=== PATIENT | female | born 1965 | race Caucasian/White ===

== ENCOUNTER 2016-02-27 15:30 | Outpatient (RCR) ==
--- NOTE | 2016-02-11 09:22 | RS.OPPTDN ---
Subjective Date of Note: 02/11/16 Visit #: 2 Date of Evaluation: 02/07/16 Treatment Diagnosis: R TKR S/P Current Subjective/complaints:: Reports no knee pain this morning,ambulates with decreased R knee flexion when entering clinic. Pain Assessment - Pain Description Pain Location: Right knee Pain Description: Dull, Aching Pain Description: Late at night is her worst pain. Current Pain Intensity: 0 at rest - Treatment Modality: Electrical Stim Unattended Parameters/Method Applied: 20 mins. high volt to R knee channel 1 @ 160 pv, channel 2 @ 80 pv. Patient Position: Supine - Heat/Cryotherapy Treatment: Cryotherapy (concurrent with e-stim) Interventions - Exercise/Activities/Manual Therapy Exercises/Activities: Right TKA exercises: 3/15 each of ankle pumps,SAQ's,SLR,s, heelslides,quad sets.3# resistance for SAQ and SLr.AROm is 110 flexion , extension 0. Total minutes of Exercise: 20 Manual Therapy: NA Total minutes of Manual Therapy: 0 HOME EXERCISE PROGRAM: Patient is performing TKR HEP currently at home. - Charges Total Direct Minutes: 20 Total Treatment Time: 40 Procedures billed for this date of service:: cp,e-stim,ex 1 Assessment: Patient progressing well ,has full extension ,flexion has soft end feel,minimal warmth ,moderate edema present.She has decreased knee flexion as she walks,but she has progressive arthritis in the L knee.She is very motivated to improve. Patient Education: Education of diagnosis, Body/Joint mechanics, Home Exercise Program, Home Safety, Activity Modification, Education of Plan of Care Patient demonstrates compliance with HEP?: Yes Short Term Goals Goal #1: Patient right knee AROM 0 to 110 degrees Goal to be met by: 02/29/16 (110 today ) Progress towards Goal:: Met Goal #2: Right knee strength 4+/5 Goal to be met by: 02/29/16 Progress towards Goal:: Progressing Goal #3: Eliminate right knee pain when not in therapy. Goal to be met by: 02/29/16 Hip Hop Performers Goals Goal #1: Right knee WFLs for AROM. Goal to be met by: 03/21/16 Progress towards goal: Progressing Goal #2: Right knee strength 5/5 for joint stability. Goal to be met by: 03/21/16 Goal #3: Independent in HEP for DC. Goal to be met by: 03/21/16 Goal #4: Only occasional RLE edema. Goal to be met by: 03/21/16 Plan PLAN OF CARE EXPIRES ON:: 03/21/16 ORDER # VISITS AND/OR THROUGH DATE: 03/21/2016 PLAN: Continue Plan of Care
--- NOTE | 2016-02-13 09:40 | RS.OPPTDN ---
Subjective Date of Note: 02/13/16 Visit #: 3 Date of Evaluation: 02/07/16 Treatment Diagnosis: R TKR S/P Current Subjective/complaints:: Patient reports doing her HEP,doing well.Reports slight increase in knee pain at the end of the day. Pain Assessment - Pain Description Pain Location: Right knee Pain Description: Dull, Aching Pain Description: Late at night is her worst pain. Current Pain Intensity: 0 at rest Worst Pain Intensity: 1/10 last night - Treatment Modality: Electrical Stim Unattended Parameters/Method Applied: 20 mins. high volt,channel 1 @ 105 pv,channel 2 @ 130 pv to R knee. Patient Position: Supine - Heat/Cryotherapy Treatment: Cryotherapy (concurrent with e-stim) Interventions - Exercise/Activities/Manual Therapy Exercises/Activities: 30 mins. total of TKA protocol with 4# resistance for SAQ.LAQ's,heelslides.Red theraband resistance for hams. curls in supine.AROM: 110 flexion ,exyension is 0. Total minutes of Exercise: 30 Manual Therapy: NA Total minutes of Manual Therapy: 0 HOME EXERCISE PROGRAM: Patient is performing TKR HEP currently at home. - Charges Total Direct Minutes: 30 Total Treatment Time: 50 Procedures billed for this date of service:: cp,e-stim,ex 2 Assessment: Progressing well in all areas,improved control for eccentric motions today.No report of pain during exercises.She is very motivatedto improve ,compliant to recommendations of the therpy staff. Patient Education: Body/Joint mechanics, Home Exercise Program, Education of Plan of Care Patient demonstrates compliance with HEP?: Yes Short Term Goals Goal #1: Patient right knee AROM 0 to 110 degrees Goal to be met by: 02/29/16 (110 today ) Progress towards Goal:: Met Goal #2: Right knee strength 4+/5 Goal to be met by: 02/29/16 Progress towards Goal:: Progressing Goal #3: Eliminate right knee pain when not in therapy. Goal to be met by: 02/29/16 Progress towards Goal:: Progressing Penitentiary Goals Goal #1: Right knee WFLs for AROM. Goal to be met by: 03/21/16 Progress towards goal: Progressing Goal #2: Right knee strength 5/5 for joint stability. Goal to be met by: 03/21/16 Goal #3: Independent in HEP for DC. Goal to be met by: 03/21/16 Progress towards goal: Progressing Goal #4: Only occasional RLE edema. Goal to be met by: 03/21/16 Plan PLAN OF CARE EXPIRES ON:: 03/21/16 ORDER # VISITS AND/OR THROUGH DATE: 03/21/2016 PLAN: Continue Plan of Care
--- NOTE | 2016-02-15 09:28 | RS.OPPTDN ---
Subjective Date of Note: 02/15/16 Visit #: 4 Date of Evaluation: 02/07/16 Treatment Diagnosis: R TKR S/P Current Subjective/complaints:: Reports increased tightness today,but no increased pain. Pain Assessment - Pain Description Pain Location: Right knee Pain Description: Dull, Aching Pain Description: Late at night is her worst pain. Current Pain Intensity: 0 at rest - Treatment Modality: Electrical Stim Unattended Parameters/Method Applied: 20 mins. high volt,to R knee cross-current ,channel 1 @115pv,channel 2 @ 65pv. Patient Position: Supine - Heat/Cryotherapy Treatment: Cryotherapy (concurrent with e-stim) Interventions - Exercise/Activities/Manual Therapy Exercises/Activities: 30 mins. total of TKA protocol with 3# resistance for ankle pumps,quad sets, SAQ,LAQ's,SLR's,heelslides.AROM 114 flexion,0 extension. Total minutes of Exercise: 30 Manual Therapy: NA Total minutes of Manual Therapy: 0 HOME EXERCISE PROGRAM: Patient is performing TKR HEP currently at home. - Charges Total Direct Minutes: 30 Total Treatment Time: 50 Procedures billed for this date of service:: cp,e-stim,ex 2 Assessment: Patient has less edema today after modalities and exercises , minimal warmth,well-healed incision.She has soft end feel for knee flexion and her current ROM is active ,no stretch required. Patient Education: Body/Joint mechanics, Home Exercise Program, Home Safety, Activity Modification, Education of Plan of Care Patient demonstrates compliance with HEP?: Yes Short Term Goals Goal #1: Patient right knee AROM 0 to 110 degrees Goal to be met by: 02/29/16 (114 today ) Progress towards Goal:: Met Goal #2: Right knee strength 4+/5 Goal to be met by: 02/29/16 Progress towards Goal:: Partially Met Goal #3: Eliminate right knee pain when not in therapy. Goal to be met by: 02/29/16 Progress towards Goal:: Progressing Correction Goals Goal #1: Right knee WFLs for AROM. Goal to be met by: 03/21/16 Progress towards goal: Progressing Goal #2: Right knee strength 5/5 for joint stability. Goal to be met by: 03/21/16 Goal #3: Independent in HEP for DC. Goal to be met by: 03/21/16 Progress towards goal: Progressing Goal #4: Only occasional RLE edema. Goal to be met by: 03/21/16 Progress towards goal: Progressing Plan PLAN OF CARE EXPIRES ON:: 03/21/16 ORDER # VISITS AND/OR THROUGH DATE: 03/21/2016 PLAN: Continue Plan of Care
--- NOTE | 2016-02-18 09:14 | RS.OPPTDN ---
Subjective Date of Note: 02/18/16 Visit #: 5 Date of Evaluation: 02/07/16 Treatment Diagnosis: R TKR S/P Current Subjective/complaints:: Pleased with her progress,reports her getting up and down is better,able to tolerate being on her fet longer with minimal pain. Pain Assessment - Pain Description Pain Location: Right knee Pain Description: Tightness Pain Description: tightness Current Pain Intensity: 0 at rest - Treatment Modality: Electrical Stim Unattended Parameters/Method Applied: 20 mins. high volt to R knee ,channel 1 @ 100 pv, channel 2 @ 80 pv. Patient Position: Supine - Heat/Cryotherapy Treatment: Cryotherapy (concurrent with e-stim) Interventions - Exercise/Activities/Manual Therapy Exercises/Activities: 30 mins. total of TKA protocol with 4# resistance for ankle pumps,quad sets, SAQ,LAQ's,SLR's,heelslides.AROM 115 flexion,0 extension.Passive flexion with stretch @ 122 today. Total minutes of Exercise: 30 Manual Therapy: NA Total minutes of Manual Therapy: 0 HOME EXERCISE PROGRAM: Patient is performing TKR HEP currently at home. - Charges Total Direct Minutes: 30 Total Treatment Time: 50 Procedures billed for this date of service:: cp,e-stim,ex 2 Assessment: Progressing well in all areas,continues to have soft end feel for flexion,less edema and warmth in the R knee today.She is compliant to HEP. Patient Education: Body/Joint mechanics, Home Exercise Program, Education of Plan of Care Patient demonstrates compliance with HEP?: Yes Short Term Goals Goal #1: Patient right knee AROM 0 to 110 degrees Goal to be met by: 02/29/16 (122) Progress towards Goal:: Met Goal #2: Right knee strength 4+/5 Goal to be met by: 02/29/16 Progress towards Goal:: Partially Met Goal #3: Eliminate right knee pain when not in therapy. Goal to be met by: 02/29/16 Progress towards Goal:: Partially Met Half-Way Goals Goal #1: Right knee WFLs for AROM. Goal to be met by: 03/21/16 Progress towards goal: Progressing Goal #2: Right knee strength 5/5 for joint stability. Goal to be met by: 03/21/16 Progress towards goal: Progressing Goal #3: Independent in HEP for DC. Goal to be met by: 03/21/16 Progress towards goal: Progressing Goal #4: Only occasional RLE edema. Goal to be met by: 03/21/16 Progress towards goal: Progressing Plan PLAN OF CARE EXPIRES ON:: 03/21/16 ORDER # VISITS AND/OR THROUGH DATE: 03/21/2016 PLAN: Progress Exercises
--- NOTE | 2016-02-20 09:13 | RS.OPPTDN ---
Subjective Date of Note: 02/20/16 Visit #: 6 Date of Evaluation: 02/07/16 Treatment Diagnosis: R TKR S/P Current Subjective/complaints:: Reports yesterday she had multiple joint pain, but better today. Pain Assessment - Pain Description Pain Location: Right knee Pain Description: Tightness, Dull, Aching Pain Description: tightness Current Pain Intensity: 0 at rest - Heat/Cryotherapy Treatment: Cryotherapy (20 mins. prior to exercises) Interventions - Exercise/Activities/Manual Therapy Exercises/Activities: 30 mins. total of TKA protocol with 4# resistance for ankle pumps,quad sets, SAQ,LAQ's,SLR's,heelslides.AROM 121 flexion,0 extension. Total minutes of Exercise: 30 Manual Therapy: NA Total minutes of Manual Therapy: 0 HOME EXERCISE PROGRAM: Patient is performing TKR HEP currently at home. - Charges Total Direct Minutes: 30 Total Treatment Time: 50 Procedures billed for this date of service:: cp,ex 2 Assessment: Patient progressing well.Her gaitpattern has decdreased knee flexion ,but this is due to L knee instability(has scheduled surgery for May on the L knee).She has soft end feel for flexion.She has increased quad strenght,better eccentric control,especially with doing SLR's. Patient Education: Home Exercise Program, Education of Plan of Care Patient demonstrates compliance with HEP?: Yes Short Term Goals Goal #1: Patient right knee AROM 0 to 110 degrees Goal to be met by: 02/29/16 (121 -122) Progress towards Goal:: Met Goal #2: Right knee strength 4+/5 Goal to be met by: 02/29/16 Progress towards Goal:: Partially Met Goal #3: Eliminate right knee pain when not in therapy. Goal to be met by: 02/29/16 Progress towards Goal:: Partially Met Imaging Assistant Goals Goal #1: Right knee WFLs for AROM. Goal to be met by: 03/21/16 Progress towards goal: Met Goal #2: Right knee strength 5/5 for joint stability. Goal to be met by: 03/21/16 Progress towards goal: Progressing Goal #3: Independent in HEP for DC. Goal to be met by: 03/21/16 Progress towards goal: Partially Met Goal #4: Only occasional RLE edema. Goal to be met by: 03/21/16 Progress towards goal: Partially Met Plan PLAN OF CARE EXPIRES ON:: 03/21/16 ORDER # VISITS AND/OR THROUGH DATE: 03/21/2016 PLAN: Progress Exercises
--- NOTE | 2016-02-22 09:13 | RS.OPPTDN ---
Subjective Date of Note: 02/22/16 Visit #: 7 Date of Evaluation: 02/07/16 Treatment Diagnosis: R TKR S/P Current Subjective/complaints:: Reports doing well,is taking her pain meds. less frequently. Pain Assessment - Pain Description Pain Location: Right knee Pain Description: Dull, Aching Current Pain Intensity: 0 at rest - Heat/Cryotherapy Treatment: Cryotherapy (20 mins. prior to exercises) Interventions - Exercise/Activities/Manual Therapy Exercises/Activities: 30 mins. total of TKA protocol 04/23 each with 4# resistance for ankle pumps,quad sets, SAQ,LAQ's;SLR's for 5sets/5 reps., heelslides.AROM 122 flexion,0 extension. Total minutes of Exercise: 30 Manual Therapy: NA Total minutes of Manual Therapy: 0 HOME EXERCISE PROGRAM: Patient is performing TKR HEP currently at home. - Charges Total Direct Minutes: 30 Total Treatment Time: 50 Procedures billed for this date of service:: cp,ex 2 Assessment: Progressing well in all areas,has less warmth and edema in R knee today.He AROM has soft end feel for flexion,her extension is WNL.She is highly motivated to impprove,compliant to HEP. Patient Education: Education of Plan of Care Patient demonstrates compliance with HEP?: Yes Short Term Goals Goal #1: Patient right knee AROM 0 to 110 degrees Goal to be met by: 02/29/16 Progress towards Goal:: Met Goal #2: Right knee strength 4+/5 Goal to be met by: 02/29/16 Progress towards Goal:: Partially Met Goal #3: Eliminate right knee pain when not in therapy. Goal to be met by: 02/29/16 Progress towards Goal:: Partially Met Correctional Lieutenant Goals Goal #1: Right knee WFLs for AROM. Goal to be met by: 03/21/16 Progress towards goal: Met Goal #2: Right knee strength 5/5 for joint stability. Goal to be met by: 03/21/16 Progress towards goal: Progressing Goal #3: Independent in HEP for DC. Goal to be met by: 03/21/16 Progress towards goal: Partially Met Goal #4: Only occasional RLE edema. Goal to be met by: 03/21/16 Progress towards goal: Partially Met Plan PLAN OF CARE EXPIRES ON:: 02/10/17 ORDER # VISITS AND/OR THROUGH DATE: 03/21/2016 PLAN: Continue Plan of Care
--- NOTE | 2016-02-25 09:11 | RS.OPPTDN ---
Subjective Date of Note: 02/25/16 Visit #: 8 Date of Evaluation: 02/07/16 Treatment Diagnosis: R TKR S/P Current Subjective/complaints:: Reports doing well.her L knee is bothering than the R (surgery) knee. Pain Assessment - Pain Description Pain Location: Right knee Pain Description: Dull Pain Description: tightness Current Pain Intensity: 0 at rest - Heat/Cryotherapy Treatment: Cryotherapy (20 mins. prior to exercises) Interventions - Exercise/Activities/Manual Therapy Exercises/Activities: 30 mins. total of TKA protocol 04/23 each with 5# resistance for ankle pumps,quad sets, SAQ,LAQ's,SLR'swithout weights, heelslides.AROM 122 flexion,0 extension.Passive felxio nto 125. Total minutes of Exercise: 30 Manual Therapy: NA Total minutes of Manual Therapy: 0 HOME EXERCISE PROGRAM: Patient is performing TKR HEP currently at home. - Charges Total Direct Minutes: 30 Total Treatment Time: 50 Procedures billed for this date of service:: cp,ex 2 Assessment: Progressing well increased passive flexion ,extension WNL.Quad strenght increased,with nopain during exercises. Patient Education: Body/Joint mechanics, Education of Plan of Care Patient demonstrates compliance with HEP?: Yes Short Term Goals Goal #1: Patient right knee AROM 0 to 110 degrees Goal to be met by: 02/29/16 Progress towards Goal:: Met Goal #2: Right knee strength 4+/5 Goal to be met by: 02/29/16 Progress towards Goal:: Partially Met Goal #3: Eliminate right knee pain when not in therapy. Goal to be met by: 02/29/16 Progress towards Goal:: Partially Met [facility] Goals Goal #1: Right knee WFLs for AROM. Goal to be met by: 03/21/16 Progress towards goal: Met Goal #2: Right knee strength 5/5 for joint stability. Goal to be met by: 03/21/16 Progress towards goal: Progressing Goal #3: Independent in HEP for DC. Goal to be met by: 03/21/16 Progress towards goal: Met Goal #4: Only occasional RLE edema. Goal to be met by: 03/21/16 Progress towards goal: Met Plan PLAN OF CARE EXPIRES ON:: 03/21/16 ORDER # VISITS AND/OR THROUGH DATE: 03/21/2016 PLAN: Continue Plan of Care
--- NOTE | 2016-02-27 16:36 | RS.OPPTDC ---
Date of Discharge: 02/27/16 Date of Evaluation: 02/07/16 Number of Visits: 9 Treatment Diagnosis: R TKR S/P Current Level of Function: Returned to work,tolerating well.Pleased with her progress. Current Complaints/Gains: Patient pleased with he rprogress,reports fatigue from returning to work yesterday,but better today.She agrees with D/C plan due to good progress. Pain Assessment - Pain Description Pain Location: Right knee Pain Description: Tightness Pain Description: tightness at end of day Current Pain Intensity: 0 at rest Functional Outcome Measure LE Functional Scale: 51 - G Codes & Severity Modifier G Codes & Modifier: NA Source of G Code score: NA Gait - Gait Pattern General Gait Pattern Observation: Wide Based Gait Interventions - Exercise/Activities/Manual Therapy Exercises/Activities: 30 mins. total of TKA protocol 04/28 each for ankle pumps, quad sets, SAQ,LAQ's,SLR's,heelslides.AROM 122 flexion,0 extension.Passive flexion to 125.HEP review. Total minutes of Exercise: 30 Manual Therapy: NA Total minutes of Manual Therapy: 0 HOME EXERCISE PROGRAM: Patient is performing TKR HEP currently at home. - Charges Total Direct Minutes: 30 Total Treatment Time: 30 Procedures billed for this date of service:: ex 2 Assessment Assessment: All rehab goals met,agrees with D/C plan today.She has excellent understanding of HEP ,pain management,and joint protection. Patient Education: Home Exercise Program Rehab Potential: Good Short Term Goals Goal #1: Patient right knee AROM 0 to 110 degrees Goal to be met by: 02/29/16 Progress towards Goal:: Met Goal #2: Right knee strength 4+/5 Goal to be met by: 02/29/16 Progress towards Goal:: Met Goal #3: Eliminate right knee pain when not in therapy. Goal to be met by: 02/29/16 Progress towards Goal:: Met Group Home Goals Goal #1: Right knee WFLs for AROM. Goal to be met by: 03/21/16 Progress towards goal: Met Goal #2: Right knee strength 5/5 for joint stability. Goal to be met by: 03/21/16 Progress towards goal: Met Goal #3: Independent in HEP for DC. Goal to be met by: 03/21/16 Progress towards goal: Met Goal #4: Only occasional RLE edema. Goal to be met by: 03/21/16 Progress towards goal: Met Plan Reason for Discharge:: All Goals Met
== END 2016-03-11 ==
PROVIDERS: ATTEND Orthopaedic Surgery
DX: Z96.651 Presence of right artificial knee joint (principal)

== ENCOUNTER 2016-03-05 15:51 | Outpatient (CLI) | END 2016-03-05 15:52 | disposition home or self-care (01) | LOC: LAB 15:51 | PROVIDERS: ATTEND Nurse Practitioner Family | DX: Z13.820 Encounter for screening for osteoporosis (principal) | CPT/HCPCS: 36415; 82306; 82310 ==

== ENCOUNTER → 2016-07-09 | Outpatient (RCR) ==
--- NOTE | 2016-07-03 16:57 | RS.OPPTEV2 ---
Date of Note: 07/02/16 Visit #: 1 Date of Evaluation: 07/02/16 Payer Source: Insurance Date of Onset/Injury/Change in Status: 06/04/16 Treatment Diagnosis: Left knee pain, left knee stiffness, s/p left TKA. History of Condition/Mechanism of Injury:: Pt had a left total knee arthroplasty due to severe OA. States she received Home Health Physical Therapy for three weeks. Prior Level of Function.....Patient was independent with: ADL's, Self Care, Work /Vocation, Caregiving, Ambulation/Mobility, Community Integration/Access Functional Limitations: Sleep, Self Care, ADL's, Reaching, Pushing, Pulling, Lifting, Carrying, Sitting, Standing, Bending, Squatting, Ambulation, Community Access/Integration Current Subjective/complaints:: Patient reports this knee surgery has been more difficult. She feels that she is not doing as well with her ROM as she did with the right knee after surgery. Reports she has not been able to control the swelling as much with icing the knee. She has weaned her pain medication down to every 8 hours. States she uses the rolling walker for long distances. She has been going without an assitive device in the home. She took pain medication prior to coming to her appointment today. Reports having stairs, but none that she has to use. She is hoping to be able to drive in town next week. Treatment Side (optional): Left Medical History Medical History: Hypertension, Arthritis Surgical History: Knee Replacement Hx Home Medications: Pain medication Patient's Goals: Her goal is to return to her previous level of function. Pain Assessment - Pain Description Pain Location: left knee Current Pain Intensity: 2/10 Worst Pain Intensity: 4/10 Functional Outcome Measure LE Functional Scale: 47 (47/80=41.25% impairment) - G Codes & Severity Modifier G Codes & Modifier: NA Source of G Code score: NA Observation - Observation Inspection: Left knee presents clean, well healing incision line. Demonstrates no bruising or redness. Girth Measurement Lower: Left LE: malleoli 30 cm, inferior incision 56.5 cm, superior incision 67 cm Gait - Gait Pattern Gait Comments: Patient ambulates with a rolling walker, independently. She demonstrates decreased stance on the left LE and decreased left hip and knee flexion during swing phase. - Left Knee ROM Left Knee Extension: full extension Left Knee Flexion: 105 (degrees AROM) Knee ROM Limitations: Soft Tissue Tightness, Pain - Right Knee ROM Right Knee Extension: full extension Right Knee Flexion: 120 (degrees AROm) - Left Knee Strength Left Knee Extension: 4- Good- Left Knee Flexion: 4 Good - Right Knee Strength Right Knee Extension: 4+ Good + Right Knee Flexion: 4+ Good + Sensation - Sensation Comments: Patient reports patches of numbness along the lateral side of the incision. Interventions - Exercise/Activities/Manual Therapy Exercises/Activities: Patient performed on stationary bike X 2.5 mins full revolutions. Reviewed HEP she was given from Home Health: SLR's with slight assistance, SAQ's, heel slides, AP's, hip abd/adduction. Assisted patient with knee flexion. Manual Therapy: NA HOME EXERCISE PROGRAM: Patient is performing TKR HEP currently at home. - Charges Total Direct Minutes: 40 mins Total Treatment Time: 40 mins Procedures billed for this date of service:: ZEYNEP NANCE Assessment Assessment: Patient presents 4 weeks s/p left TKA. She exhibits limited functional flexion and muscle strength of the left knee. She requires a rolling walker for community distances and is unable to perform her regular ADL' s at the level of independence that she could prior to surgery. She demonstrates great potential to regain functional AROM of the left LE. Patient Education: Education of diagnosis, Body/Joint mechanics, Home Exercise Program, Home Safety, Activity Modification, Education of Plan of Care Rehab Potential: Good Short Term Goals Goal #1: Left knee AROM 0 to 115 degrees. Goal to be met by: 07/17/16 Goal #2: Left quad strength 4+/5 Goal to be met by: 07/17/16 Goal #3: Left knee pain at rest 0/10. Goal to be met by: 07/17/16 Pawn Shop Keeper Goals Goal #1: Pt knows HEP and to continue ex's to maintain functional level at D/C. Goal to be met by: 08/17/16 Goal #2: Score on LE functional index improved to <20% impairment. Goal to be met by: 08/17/16 Goal #3: Left knee AROM WFL's to perform all ADL's without difficulty. Goal to be met by: 08/17/16 Goal #4: Pt to amb. community distances w/o assist. device with min. gait deviation. Goal to be met by: 08/17/16 Plan - Treatment to be Provided Procedures: Therapeutic Exercises, Therapeutic Activity, Gait Training, Manual Therapy, Patient Education Modalities: Electrical Stimulation, Cryotherapy, Hot Packs - Treatment Plan Frequency: 3 X week Duration: 6 weeks ORDER # VISITS AND/OR THROUGH DATE: 08/17/16 - Treatment Code (1) Knee pain Qualifiers: Laterality: left Chronicity: acute Qualified Description: Acute pain of left knee Qualifier Code(s): (M25.562) Pain in left knee (2) Knee stiffness Qualifiers: Laterality: left Qualified Description: Knee stiffness, left Qualifier Code(s): (M25.662) Stiffness of left knee, not elsewhere classified (3) Aftercare following joint replacement surgery Qualifiers: Joint replacement surgery site: knee Laterality: left Qualified Description: Aftercare following left knee joint replacement surgery Qualifier Code(s): (Z47.1) Aftercare following joint replacement surgery, ( Z96.652) Presence of left artificial knee joint
--- NOTE | 2016-07-04 10:04 | RS.OPPTDN ---
Subjective Date of Note: 07/04/16 Visit #: 2 Date of Evaluation: 07/02/16 Payer Source: Insurance Treatment Diagnosis: Left knee pain, left knee stiffness, s/p left TKA. Current Subjective/complaints:: Patient states her main problem is swelling today. She says she is sleeping in her bed, but limited time because of position. She says she did drive today without difficulty due to transportation plans changing. She says she took 1 pain pill an hour before therapy, which helps. She is walking around her home independently. Pain Assessment - Pain Description Pain Location: left knee, C/c swelling today Pain Description: tightness at end of day Current Pain Intensity: 2/10 - Treatment Modality: Electrical Stim Unattended Parameters/Method Applied: hivolt 4 large pads to the L knee after therex @ 125- 130 pk volts x 20 mins Patient Position: Supine - Heat/Cryotherapy Treatment: Cryotherapy Interventions - Exercise/Activities/Manual Therapy Exercises/Activities: Patient received PROM and gentle stretching to the L knee with patellar mobs. She performs: QS, HS, hip abd (AAROM), SLR (AAROM), Pillow squeezes, SAQ, DF and ham curls with red tband all 2x10 except QS 3 sets. LAQ 2x10, hip flexion in sitting x 5. Total minutes of Exercise: 30 Manual Therapy: NA HOME EXERCISE PROGRAM: Patient is performing TKR HEP currently at home. - Charges Total Direct Minutes: 30 Total Treatment Time: 50 Procedures billed for this date of service:: cp, estim (Un), ex2 Assessment: Patient able to drive for first time today without difficulty. She has alycia exercises well today. She does have mod swelling to the L knee extending to the ankle and amb with RW to PT today. Patient Education: Education of diagnosis, Body/Joint mechanics, Home Exercise Program, Home Safety, Activity Modification, Education of Plan of Care Patient demonstrates compliance with HEP?: Yes Short Term Goals Goal #1: Left knee AROM 0 to 115 degrees. Goal to be met by: 07/17/16 Progress towards Goal:: Progressing Goal #2: Left quad strength 4+/5 Goal to be met by: 07/17/16 Goal #3: Left knee pain at rest 0/10. Goal to be met by: 07/17/16 Mcfp Goals Goal #1: Pt knows HEP and to continue ex's to maintain functional level at D/C. Goal to be met by: 08/17/16 Goal #2: Score on LE functional index improved to <20% impairment. Goal to be met by: 08/17/16 Goal #3: Left knee AROM WFL's to perform all ADL's without difficulty. Goal to be met by: 08/17/16 Goal #4: Pt to amb. community distances w/o assist. device with min. gait deviation. Goal to be met by: 08/17/16 Plan PLAN OF CARE EXPIRES ON:: 08/17/16 ORDER # VISITS AND/OR THROUGH DATE: 08/17/16 PLAN: Progress Exercises
--- NOTE | 2016-07-09 09:07 | RS.OPPTDN ---
Subjective Date of Note: 07/09/16 Visit #: 3 Date of Evaluation: 07/02/16 Payer Source: Insurance Treatment Diagnosis: Left knee pain, left knee stiffness, s/p left TKA. Current Subjective/complaints:: Patient reports feeling better today ,but the first three weeks was rather difficult.She is always extremely motivated to improve. Pain Assessment - Pain Description Pain Location: left knee, C/c swelling today Pain Description: Dull, Aching Pain Description: tightness at end of day Current Pain Intensity: minimal - Treatment Modality: Electrical Stim Unattended Parameters/Method Applied: 20 mins. high volt to L knee,channel 1 @ 90 pv, channel 2 @ 170 pv. Patient Position: Supine - Heat/Cryotherapy Treatment: Cryotherapy (concurrent with e-stim) Interventions - Exercise/Activities/Manual Therapy Exercises/Activities: 25 mins total,including ankle pumps,QS,SAQ,SLR's done 3 reps. at a time,heelslides.AROM is 105 ,109 with gentle stretch,extension is WNL. Total minutes of Exercise: 25 Manual Therapy: NA Total minutes of Manual Therapy: 0 HOME EXERCISE PROGRAM: Patient is performing TKR HEP currently at home. - Charges Total Direct Minutes: 25 Total Treatment Time: 45 Procedures billed for this date of service:: cp,e-stim,ex Assessment: Patient has soft end feel for flexion today,but still has moderate warmth and edema present.She has good return demo of knee exercises.She initially has antalgic gait present ,which lessens as her gait progresses. Patient Education: Education of diagnosis, Body/Joint mechanics, Home Exercise Program, Home Safety, Activity Modification, Education of Plan of Care Patient demonstrates compliance with HEP?: Yes Short Term Goals Goal #1: Left knee AROM 0 to 115 degrees. Goal to be met by: 07/17/16 Progress towards Goal:: Progressing Goal #2: Left quad strength 4+/5 Goal to be met by: 07/17/16 Progress towards Goal:: Progressing Goal #3: Left knee pain at rest 0/10. Goal to be met by: 07/17/16 Progress towards Goal:: Progressing Correction Goals Goal #1: Pt knows HEP and to continue ex's to maintain functional level at D/C. Goal to be met by: 08/17/16 Progress towards goal: Progressing Goal #2: Score on LE functional index improved to <20% impairment. Goal to be met by: 08/17/16 Goal #3: Left knee AROM WFL's to perform all ADL's without difficulty. Goal to be met by: 08/17/16 Goal #4: Pt to amb. community distances w/o assist. device with min. gait deviation. Goal to be met by: 08/17/16 Plan PLAN OF CARE EXPIRES ON:: 08/17/16 ORDER # VISITS AND/OR THROUGH DATE: 08/17/16 PLAN: Continue Plan of Care
== END ==
PROVIDERS: ATTEND Orthopaedic Surgery
DX: Z47.1 Aftercare following joint replacement surgery (principal); Z96.652 Presence of left artificial knee joint

== ENCOUNTER → 2016-08-08 | Outpatient (RCR) ==
--- NOTE | 2016-07-10 09:25 | RS.OPPTDN ---
Subjective Date of Note: 07/10/16 Visit #: 4 Date of Evaluation: 07/02/16 Payer Source: Insurance Treatment Diagnosis: Left knee pain, left knee stiffness, s/p left TKA. Current Subjective/complaints:: Patient reports morning stiffness,but no knee pain currently.She reports sleeping better this morning. Pain Assessment - Pain Description Pain Location: left knee, C/c swelling today Pain Description: tightness Current Pain Intensity: none - Treatment Modality: Electrical Stim Unattended Parameters/Method Applied: 20 mins. high - volt to L knee ,channel 1 @ 85 pv, channel 2 @ 90 pv. Patient Position: Supine - Heat/Cryotherapy Treatment: Cryotherapy (concurrent with e-stim) Interventions - Exercise/Activities/Manual Therapy Exercises/Activities: 25 mins total,including 3/15 ankle pumps,QS,SAQ;SLR's done 5 reps. at a time,heelslides.AROM is 107 ,110 with gentle stretch, extension is WNL.HEP review. Total minutes of Exercise: 25 Manual Therapy: NA Total minutes of Manual Therapy: 0 HOME EXERCISE PROGRAM: Patient is performing TKR HEP currently at home. - Charges Total Direct Minutes: 25 Total Treatment Time: 45 Procedures billed for this date of service:: cp,e-stim,ex 1 Assessment: Patient has improved quads strength,able to do SLR's 5 reps. at a time today with good form.She has less antalgic gait today as he rgait progresses.She is compliant to HEP.She continues to have soft end feel present for knee flexion. Patient Education: Home Exercise Program, Home Safety, Education of Plan of Care Patient demonstrates compliance with HEP?: Yes Short Term Goals Goal #1: Left knee AROM 0 to 115 degrees. Goal to be met by: 07/17/16 Progress towards Goal:: Progressing Goal #2: Left quad strength 4+/5 Goal to be met by: 07/17/16 Progress towards Goal:: Progressing Goal #3: Left knee pain at rest 0/10. Goal to be met by: 07/17/16 Progress towards Goal:: Progressing Pickup Driver Goals Goal #1: Pt knows HEP and to continue ex's to maintain functional level at D/C. Goal to be met by: 08/17/16 Progress towards goal: Progressing Goal #2: Score on LE functional index improved to <20% impairment. Goal to be met by: 08/17/16 Goal #3: Left knee AROM WFL's to perform all ADL's without difficulty. Goal to be met by: 08/17/16 Progress towards goal: Progressing Goal #4: Pt to amb. community distances w/o assist. device with min. gait deviation. Goal to be met by: 08/17/16 Plan PLAN OF CARE EXPIRES ON:: 08/17/16 ORDER # VISITS AND/OR THROUGH DATE: 08/17/16 PLAN: Continue Plan of Care
--- NOTE | 2016-07-15 10:09 | RS.OPPTDN ---
Subjective Date of Note: 07/15/16 Visit #: 5 Date of Evaluation: 07/02/16 Payer Source: Insurance Treatment Diagnosis: Left knee pain, left knee stiffness, s/p left TKA. Current Subjective/complaints:: Reports icing the L knee earlier this morning.She reports she has returned to for follow-up appt.,with good report. Pain Assessment - Pain Description Pain Location: left knee, C/c swelling today Pain Description: Tightness Current Pain Intensity: none - Treatment Modality: Electrical Stim Unattended Parameters/Method Applied: 20 mins. high volt to L knee,channel 1 above knee @ 90 pv,channel 2 below the knee @ 135 pv. Patient Position: Supine - Heat/Cryotherapy Treatment: Cryotherapy (cocurrent with e-stim) Interventions - Exercise/Activities/Manual Therapy Exercises/Activities: 30 mins total,including 3/15 ankle pumps,QS,SAQ with 2.5 # ;SLR's with done 5 reps. at a time with no resistance.,heelslides.AROM is 110 , 114 with gentle stretch,extension is WNL.HEP review. Total minutes of Exercise: 30 Manual Therapy: NA Total minutes of Manual Therapy: 0 HOME EXERCISE PROGRAM: Patient is performing TKR HEP currently at home. - Charges Total Direct Minutes: 30 Total Treatment Time: 50 Procedures billed for this date of service:: cp,e-stim,ex 2 Assessment: Patient progressing well,less edema ,less warmth in the L knee today.She has improved quad firing present ,increased knee flexion actively today.She has steady gait without use of assistive device. Patient Education: Education of diagnosis, Body/Joint mechanics, Home Exercise Program, Home Safety, Activity Modification, Education of Plan of Care Patient demonstrates compliance with HEP?: Yes Short Term Goals Goal #1: Left knee AROM 0 to 115 degrees. Goal to be met by: 07/17/16 Progress towards Goal:: Progressing Goal #2: Left quad strength 4+/5 Goal to be met by: 07/17/16 Progress towards Goal:: Progressing Goal #3: Left knee pain at rest 0/10. Goal to be met by: 07/17/16 Progress towards Goal:: Progressing Detention Goals Goal #1: Pt knows HEP and to continue ex's to maintain functional level at D/C. Goal to be met by: 08/17/16 Progress towards goal: Progressing Goal #2: Score on LE functional index improved to <20% impairment. Goal to be met by: 08/17/16 Goal #3: Left knee AROM WFL's to perform all ADL's without difficulty. Goal to be met by: 08/17/16 Progress towards goal: Progressing Goal #4: Pt to amb. community distances w/o assist. device with min. gait deviation. Goal to be met by: 08/17/16 Progress towards goal: Progressing Plan PLAN OF CARE EXPIRES ON:: 08/17/16 ORDER # VISITS AND/OR THROUGH DATE: 08/17/16 PLAN: Continue Plan of Care
--- NOTE | 2016-07-16 09:19 | RS.OPPTDN ---
Subjective Date of Note: 07/16/16 Visit #: 6 Date of Evaluation: 07/02/16 Payer Source: Insurance Treatment Diagnosis: Left knee pain, left knee stiffness, s/p left TKA. Current Subjective/complaints:: Reports morning stiffness,but no elevated pain at this time. Pain Assessment - Pain Description Pain Location: left knee, C/c swelling today Pain Description: Tightness Pain Description: tightness Current Pain Intensity: none - Treatment Modality: Electrical Stim Unattended Parameters/Method Applied: 20 mins. high volt to L knee,channel 1 @ 95 - 100 pv, channel 2 @ 110 - 125 pv. Patient Position: Supine - Heat/Cryotherapy Treatment: Cryotherapy (concurrent with e-stim) Interventions - Exercise/Activities/Manual Therapy Exercises/Activities: 30 mins total,including 3/15 ankle pumps,QS,SAQ with 5 #; SLR's with done 5 reps. at a time with no resistance.,heelslides.AROM is 110 , 114 with gentle stretch,extension is WNL.HEP review. Total minutes of Exercise: 30 Manual Therapy: NA Total minutes of Manual Therapy: 0 HOME EXERCISE PROGRAM: Patient is performing TKR HEP currently at home. - Charges Total Direct Minutes: 30 Total Treatment Time: 50 Procedures billed for this date of service:: cp,e-stim,ex 2 Assessment: Patient achieves the knee flexion easier today ,has same motion (114 ),continues to progress well,also with less edema present. Patient Education: Education of Plan of Care Patient demonstrates compliance with HEP?: Yes Short Term Goals Goal #1: Left knee AROM 0 to 115 degrees. Goal to be met by: 07/17/16 Progress towards Goal:: Progressing Goal #2: Left quad strength 4+/5 Goal to be met by: 07/17/16 Progress towards Goal:: Progressing Goal #3: Left knee pain at rest 0/10. Goal to be met by: 07/17/16 Progress towards Goal:: Progressing Fdc Goals Goal #1: Pt knows HEP and to continue ex's to maintain functional level at D/C. Goal to be met by: 08/17/16 Progress towards goal: Progressing Goal #2: Score on LE functional index improved to <20% impairment. Goal to be met by: 08/17/16 Goal #3: Left knee AROM WFL's to perform all ADL's without difficulty. Goal to be met by: 08/17/16 Progress towards goal: Progressing Goal #4: Pt to amb. community distances w/o assist. device with min. gait deviation. Goal to be met by: 08/17/16 Progress towards goal: Progressing Plan PLAN OF CARE EXPIRES ON:: 08/17/16 ORDER # VISITS AND/OR THROUGH DATE: 08/17/16 PLAN: Progress Exercises
--- NOTE | 2016-07-18 09:20 | RS.OPPTDN ---
Subjective Date of Note: 07/18/16 Visit #: 7 Date of Evaluation: 07/02/16 Payer Source: Insurance Treatment Diagnosis: Left knee pain, left knee stiffness, s/p left TKA. Current Subjective/complaints:: No c/o. Pain Assessment - Pain Description Pain Location: left knee, C/c swelling today Pain Description: Tightness Pain Description: tightness Current Pain Intensity: none - Treatment Modality: Electrical Stim Unattended Parameters/Method Applied: 20 mins. high volt to L knee ,channel 1 @ 105 pv, channel 2 @ 115 pv. Patient Position: Supine - Heat/Cryotherapy Treatment: Cryotherapy (concurrent with e-stim) Interventions - Exercise/Activities/Manual Therapy Exercises/Activities: 20 mins total,including 3/15 ankle pumps,QS,SAQ with 5 #; SLR's with done 10 reps. at a time with no resistance.,heelslides.AROM is 120 with gentle stretch,extension is WNL.HEP review. Total minutes of Exercise: 20 Manual Therapy: NA Total minutes of Manual Therapy: 0 HOME EXERCISE PROGRAM: Patient is performing TKR HEP currently at home. - Charges Total Direct Minutes: 20 Total Treatment Time: 40 Procedures billed for this date of service:: cp,e-stim,ex 1 Assessment: Patient continues to progress well,has increased knee flexion today as the edema lessens.She has good knowledge of HEP.She is ambulating without assistive device safely. Patient Education: Home Exercise Program, Education of Plan of Care Patient demonstrates compliance with HEP?: Yes Short Term Goals Goal #1: Left knee AROM 0 to 115 degrees. Goal to be met by: 07/17/16 (120) Progress towards Goal:: Met Goal #2: Left quad strength 4+/5 Goal to be met by: 07/17/16 Progress towards Goal:: Progressing Goal #3: Left knee pain at rest 0/10. Goal to be met by: 07/17/16 Progress towards Goal:: Partially Met Yeast Distiller Goals Goal #1: Pt knows HEP and to continue ex's to maintain functional level at D/C. Goal to be met by: 08/17/16 Progress towards goal: Progressing Goal #2: Score on LE functional index improved to <20% impairment. Goal to be met by: 08/17/16 Goal #3: Left knee AROM WFL's to perform all ADL's without difficulty. Goal to be met by: 08/17/16 Progress towards goal: Progressing Goal #4: Pt to amb. community distances w/o assist. device with min. gait deviation. Goal to be met by: 08/17/16 Progress towards goal: Progressing Plan PLAN OF CARE EXPIRES ON:: 08/17/16 ORDER # VISITS AND/OR THROUGH DATE: 08/17/16 PLAN: Progress Exercises
--- NOTE | 2016-07-21 09:04 | RS.OPPTDN ---
Subjective Date of Note: 07/21/16 Visit #: 8 Date of Evaluation: 07/02/16 Payer Source: Insurance Treatment Diagnosis: Left knee pain, left knee stiffness, s/p left TKA. Current Subjective/complaints:: Patient reports slight increase in soreness due to catching the foot on the car door as she was getting out,but not sharp pain. Pain Assessment - Pain Description Pain Location: left knee, C/c swelling today Pain Description: Tightness, Dull, Aching Pain Description: tightness Current Pain Intensity: 1 - Treatment Modality: Electrical Stim Unattended Parameters/Method Applied: 20 mins. high volt to L knee,channel 1 105 - 110 pv, channel 2 @ 90 -105 pv. Patient Position: Supine - Heat/Cryotherapy Treatment: Cryotherapy (concurrent with e-stim) Interventions - Exercise/Activities/Manual Therapy Exercises/Activities: 20 mins total,including 3 ankle pumps,QS,SAQ,Laq's done in supine 90/90 position,315. with 5 #;SLR's with 2 #, 2/10 reps. at a time ,heelslides.AROM is 118 with gentle stretch,extension is WNL.HEP review. Total minutes of Exercise: 20 Manual Therapy: NA Total minutes of Manual Therapy: 0 HOME EXERCISE PROGRAM: Patient is performing TKR HEP currently at home. - Charges Total Direct Minutes: 20 Total Treatment Time: 40 Procedures billed for this date of service:: cp,e-stim,ex Assessment: Patient progressing well in all areas,very compliant to HEP,steady gait wtih report of morning tightness only. Patient Education: Body/Joint mechanics, Home Exercise Program, Activity Modification, Education of Plan of Care Patient demonstrates compliance with HEP?: Yes Short Term Goals Goal #1: Left knee AROM 0 to 115 degrees. Goal to be met by: 07/17/16 (120) Progress towards Goal:: Met Goal #2: Left quad strength 4+/5 Goal to be met by: 07/17/16 Progress towards Goal:: Progressing Goal #3: Left knee pain at rest 0/10. Goal to be met by: 07/17/16 Progress towards Goal:: Partially Met Halfway Goals Goal #1: Pt knows HEP and to continue ex's to maintain functional level at D/C. Goal to be met by: 08/17/16 Progress towards goal: Met Goal #2: Score on LE functional index improved to <20% impairment. Goal to be met by: 08/17/16 Goal #3: Left knee AROM WFL's to perform all ADL's without difficulty. Goal to be met by: 08/17/16 Progress towards goal: Progressing Goal #4: Pt to amb. community distances w/o assist. device with min. gait deviation. Goal to be met by: 08/17/16 Progress towards goal: Partially Met Plan PLAN OF CARE EXPIRES ON:: 08/17/16 ORDER # VISITS AND/OR THROUGH DATE: 08/17/16 PLAN: Progress Exercises
--- NOTE | 2016-07-23 08:59 | RS.OPPTDN ---
Subjective Date of Note: 07/23/16 Visit #: 9 Date of Evaluation: 07/02/16 Payer Source: Insurance Treatment Diagnosis: Left knee pain, left knee stiffness, s/p left TKA. Current Subjective/complaints:: Reports feeling okay this morning ,but had increased soreness yesterday and Thursday night due to being on her feet longer than expected with a family member at the hospital. Pain Assessment - Pain Description Pain Location: left knee, C/c swelling today Pain Description: Tightness, Dull Pain Description: soreness Current Pain Intensity: not rated - Heat/Cryotherapy Treatment: Hot Pack (20 mins. prior to exercises) Interventions - Exercise/Activities/Manual Therapy Exercises/Activities: 25 mins. total of 2/15 reps. on leg press @ 75#,1/15 @ 90 #.Calf -raises on leg press @ 30 # 3/10.Standing hams. curls with 43 x 20 reps.Supine heelslides x 20 ,15 reps. SLR's,then ROM measurements.Extension is WNL,flexion is 114,[id number],then 120 at end of session. Total minutes of Exercise: 25 Manual Therapy: NA Total minutes of Manual Therapy: 0 HOME EXERCISE PROGRAM: Patient is performing TKR HEP currently at home. - Charges Total Direct Minutes: 25 Total Treatment Time: 45 Procedures billed for this date of service:: hp,ex 2 Assessment: Progressing well in all areas,has increased strength in the L quads and hamstrings,with less pain present.She has steady gait,very motivated to achieve the highest level of function possible. Short Term Goals Goal #1: Left knee AROM 0 to 115 degrees. Goal to be met by: 07/17/16 (120) Progress towards Goal:: Met Goal #2: Left quad strength 4+/5 Goal to be met by: 07/17/16 Progress towards Goal:: Met Goal #3: Left knee pain at rest 0/10. Goal to be met by: 07/17/16 Progress towards Goal:: Partially Met Fpc Goals Goal #1: Pt knows HEP and to continue ex's to maintain functional level at D/C. Goal to be met by: 08/17/16 Progress towards goal: Met Goal #2: Score on LE functional index improved to <20% impairment. Goal to be met by: 08/17/16 Goal #3: Left knee AROM WFL's to perform all ADL's without difficulty. Goal to be met by: 08/17/16 Progress towards goal: Progressing Goal #4: Pt to amb. community distances w/o assist. device with min. gait deviation. Goal to be met by: 08/17/16 Progress towards goal: Partially Met Plan PLAN OF CARE EXPIRES ON:: 08/17/16 ORDER # VISITS AND/OR THROUGH DATE: 08/17/16 PLAN: Progress Exercises
--- NOTE | 2016-07-25 09:25 | RS.OPPTDN ---
Subjective Date of Note: 07/25/16 Visit #: 10 Date of Evaluation: 07/02/16 Payer Source: Insurance Treatment Diagnosis: Left knee pain, left knee stiffness, s/p left TKA. Current Subjective/complaints:: Patient doing well,no knee pain. Pain Assessment - Pain Description Pain Location: left knee, C/c swelling today Pain Description: Tightness, Dull Pain Description: soreness Current Pain Intensity: 0 - Heat/Cryotherapy Treatment: Hot Pack (20 mins. to L knee, prior to exercises) Interventions - Exercise/Activities/Manual Therapy Exercises/Activities: 30 mins. total of 3/15 reps. on leg press @ 75, 90,105 # # .Calf -raises on leg press @ 45 # 3/15.Standing hams. curls with 4# x 3/15 reps.Supine heelslides x 10 SLR's 3/15 reps.,then ROM measurements.Extension is WNL,flexion is 118 - 119. Total minutes of Exercise: 30 Manual Therapy: NA HOME EXERCISE PROGRAM: Patient is performing TKR HEP currently at home. - Charges Total Direct Minutes: 30 Total Treatment Time: 50 Procedures billed for this date of service:: hp,ex 2 Assessment: Patient has no loss of motion or pain today,but has moderate edema present in the L knee.She is highly motivated to improve ,compliant in all areas regarding the knee. Patient Education: Body/Joint mechanics, Home Exercise Program, Home Safety Patient demonstrates compliance with HEP?: Yes (Also does aquatic exercises at home.) Short Term Goals Goal #1: Left knee AROM 0 to 115 degrees. Goal to be met by: 07/17/16 (120) Progress towards Goal:: Met Goal #2: Left quad strength 4+/5 Goal to be met by: 07/17/16 Progress towards Goal:: Met Goal #3: Left knee pain at rest 0/10. Goal to be met by: 07/17/16 Progress towards Goal:: Partially Met Medical Imaging Technologist Goals Goal #1: Pt knows HEP and to continue ex's to maintain functional level at D/C. Goal to be met by: 08/17/16 Progress towards goal: Met Goal #2: Score on LE functional index improved to <20% impairment. Goal to be met by: 08/17/16 Goal #3: Left knee AROM WFL's to perform all ADL's without difficulty. Goal to be met by: 08/17/16 Progress towards goal: Progressing Goal #4: Pt to amb. community distances w/o assist. device with min. gait deviation. Goal to be met by: 08/17/16 Progress towards goal: Partially Met Plan PLAN OF CARE EXPIRES ON:: 08/17/16 ORDER # VISITS AND/OR THROUGH DATE: 08/17/16 PLAN: Progress Exercises
--- NOTE | 2016-07-28 09:26 | RS.OPPTDN ---
Subjective Date of Note: 07/28/16 Visit #: 11 Date of Evaluation: 07/02/16 Payer Source: Insurance Treatment Diagnosis: Left knee pain, left knee stiffness, s/p left TKA. Current Subjective/complaints:: Patient is pleased with her progress,is using ice less frequently as the L knee improves. Pain Assessment - Pain Description Pain Location: left knee, C/c swelling today Pain Description: Tightness Pain Description: soreness Current Pain Intensity: 0 Interventions - Exercise/Activities/Manual Therapy Exercises/Activities: 55 mins. total,(15 on bike) for warm-up.then balance exercises on [employer],each protocol with 75 - 80 % eficiency with the standing base on static setting.Ended session in supine ,did 2/15 reps. heelslides,Grade II AP mobs.AROM is 115 flexion before heelslides,122 after.Knee extension is WNL. Total minutes of Exercise: 55 Manual Therapy: NA Total minutes of Manual Therapy: 0 HOME EXERCISE PROGRAM: Patient is performing TKR HEP currently at home. - Charges Total Direct Minutes: 45 Total Treatment Time: 55 Procedures billed for this date of service:: ex 3 Assessment: Patient tolerstes the static and dynamic balance challengs well today,with no report of knee pain with prolonged standing.Her knee flexion is improving with soft end feel,and the limiting factor will likely be soft tissue approximation,not pain.Her gait is steadier. Patient Education: Education of diagnosis, Body/Joint mechanics, Home Exercise Program, Home Safety, Activity Modification, Education of Plan of Care Patient demonstrates compliance with HEP?: Yes Short Term Goals Goal #1: Left knee AROM 0 to 115 degrees. Goal to be met by: 07/17/16 (120) Progress towards Goal:: Met Goal #2: Left quad strength 4+/5 Goal to be met by: 07/17/16 Progress towards Goal:: Met Goal #3: Left knee pain at rest 0/10. 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 Goal to be met by: 08/17/16 Progress towards goal: Met Goal #2: Score on LE functional index improved to <20% impairment. Goal to be met by: 08/17/16 Goal #3: Left knee AROM WFL's to perform all ADL's without difficulty. Goal to be met by: 08/17/16 Progress towards goal: Progressing Goal #4: Pt to amb. community distances w/o assist. device with min. gait deviation. Goal to be met by: 08/17/16 Progress towards goal: Partially Met Plan PLAN OF CARE EXPIRES ON:: 08/17/16 ORDER # VISITS AND/OR THROUGH DATE: 08/17/16 PLAN: Continue Plan of Care
--- NOTE | 2016-07-30 09:24 | RS.OPPTDN ---
Subjective Date of Note: 07/30/16 Visit #: 12 Date of Evaluation: 07/02/16 Payer Source: Insurance Treatment Diagnosis: Left knee pain, left knee stiffness, s/p left TKA. Current Subjective/complaints:: Reports less morning stiffness today. Pain Assessment - Pain Description Pain Description: Tightness Current Pain Intensity: 0 Other Comments regarding Pain:: less tightness today Interventions - Exercise/Activities/Manual Therapy Exercises/Activities: 55 mins. total,(10 on bike) for warm-up.then 3/15 reps on leg press @ 90,105,120#,then step-ups forward and laterally on 4" step.Supine heelslides x20 reps,then alternating hip flexion with 4#,3/15 reps.Static stretches to hamstirngs x 20 secs. each after treatment.AROM is 118 flexion , increased to 123 degrees after assisted stretch. Total minutes of Exercise: 55 Manual Therapy: NA Total minutes of Manual Therapy: 0 HOME EXERCISE PROGRAM: Patient is performing TKR HEP currently at home. - Charges Total Direct Minutes: 45 Total Treatment Time: 55 Procedures billed for this date of service:: ex3 Assessment: Patient progressing well,has steadier gait on level and unlevel surfaces.Her knee flexion again has soft end feel,limited by soft tissue approximation.Her extension is normal. Patient Education: Education of Plan of Care Patient demonstrates compliance with HEP?: Yes Short Term Goals Goal #1: Left knee AROM 0 to 115 degrees. Goal to be met by: 07/17/16 (120) Progress towards Goal:: Met Goal #2: Left quad strength 4+/5 Goal to be met by: 07/17/16 Progress towards Goal:: Met Goal #3: Left knee pain at rest 0/10. Goal to be met by: 07/17/16 Progress towards Goal:: Met Usp Goals Goal #1: Pt knows HEP and to continue ex's to maintain functional level at D/C. Goal to be met by: 08/17/16 Progress towards goal: Met Goal #2: Score on LE functional index improved to <20% impairment. Goal to be met by: 08/17/16 Goal #3: Left knee AROM WFL's to perform all ADL's without difficulty. Goal to be met by: 08/17/16 Progress towards goal: Partially Met Goal #4: Pt to amb. community distances w/o assist. device with min. gait deviation. Goal to be met by: 08/17/16 Progress towards goal: Partially Met Plan PLAN OF CARE EXPIRES ON:: 08/17/16 ORDER # VISITS AND/OR THROUGH DATE: 08/17/16 PLAN: Progress Exercises
--- NOTE | 2016-08-01 09:03 | RS.OPPTDN ---
Subjective Date of Note: 08/01/16 Visit #: 13 Date of Evaluation: 07/02/16 Payer Source: Insurance Treatment Diagnosis: Left knee pain, left knee stiffness, s/p left TKA. Current Subjective/complaints:: Patient reports doing well,is doing her exercises at home on a regularly basis. Pain Assessment - Pain Description Pain Location: left knee, C/c swelling today Pain Description: Tightness Pain Description: soreness Current Pain Intensity: 0 Interventions - Exercise/Activities/Manual Therapy Exercises/Activities: 45 mins. total,(5 on elliptical) for warm-up.then 3/15 reps on leg press @ 90,105,120#,standing hip flexion,hip extension ,hip abd/ adduction,then step-ups forward and laterally on 4" step. Total minutes of Exercise: 45 Manual Therapy: NA Total minutes of Manual Therapy: 0 HOME EXERCISE PROGRAM: Patient is performing TKR HEP currently at home. - Charges Total Direct Minutes: 40 Total Treatment Time: 45 Procedures billed for this date of service:: ex 3 Assessment: Progresing well in all areas,reports fatigue with lateral steps today,can benefit from strengthening the hip abductors/adductors.She is compliant to HEp,motivated to achieve highest level of function. Patient Education: Education of Plan of Care Patient demonstrates compliance with HEP?: Yes Short Term Goals Goal #1: Left knee AROM 0 to 115 degrees. Goal to be met by: 07/17/16 (120) Progress towards Goal:: Met Goal #2: Left quad strength 4+/5 Goal to be met by: 07/17/16 Progress towards Goal:: Met Goal #3: Left knee pain at rest 0/10. Goal to be met by: 07/17/16 Progress towards Goal:: Met Residential Goals Goal #1: Pt knows HEP and to continue ex's to maintain functional level at D/C. Goal to be met by: 08/17/16 Progress towards goal: Met Goal #2: Score on LE functional index improved to <20% impairment. Goal to be met by: 08/17/16 Goal #3: Left knee AROM WFL's to perform all ADL's without difficulty. Goal to be met by: 08/17/16 Progress towards goal: Partially Met Goal #4: Pt to amb. community distances w/o assist. device with min. gait deviation. Goal to be met by: 08/17/16 Progress towards goal: Partially Met Plan PLAN OF CARE EXPIRES ON:: 08/17/16 ORDER # VISITS AND/OR THROUGH DATE: 08/17/16 PLAN: Progress Exercises
--- NOTE | 2016-08-06 09:23 | RS.OPPTDN ---
Subjective Date of Note: 08/06/16 Visit #: 14 Date of Evaluation: 07/02/16 Payer Source: Insurance Treatment Diagnosis: Left knee pain, left knee stiffness, s/p left TKA. Current Subjective/complaints:: Patient reports doing her exercises regularly at home,also in her swimming pool. Pain Assessment - Pain Description Current Pain Intensity: 0 Interventions - Exercise/Activities/Manual Therapy Exercises/Activities: 55 mins. total,(10 on bike) for warm-up.then 3/15 reps on leg press @ 105,120, and 135 #,3/20 standing alternating hip flexion,hip extension ,hip abd/adduction with 4#,then step-ups forward and laterally on 8" step.,x 5 reps. Total minutes of Exercise: 55 Manual Therapy: NA Total minutes of Manual Therapy: 0 HOME EXERCISE PROGRAM: Patient is performing TKR HEP currently at home. - Objective Findings Observations,measurements,etc.: AROM is 120 -122 flexion ,extension is WNL. - Charges Total Direct Minutes: 45 Total Treatment Time: 55 Procedures billed for this date of service:: ex 3 Assessment: Patient has less edema in the L knee today,minimal warmth present.She law sincreased gross strength in the L LE.She fatigues easily doing steps without use of rail,but is safe and cautious.She is highly motivated to achieve the highest level of function possible. Patient Education: Body/Joint mechanics, Home Safety, Education of Plan of Care Patient demonstrates compliance with HEP?: Yes Short Term Goals Goal #1: Left knee AROM 0 to 115 degrees. Goal to be met by: 07/17/16 (120) Progress towards Goal:: Met Goal #2: Left quad strength 4+/5 Goal to be met by: 07/17/16 Progress towards Goal:: Met Goal #3: Left knee pain at rest 0/10. Goal to be met by: 07/17/16 Progress towards Goal:: Met Senior Care Goals Goal #1: Pt knows HEP and to continue ex's to maintain functional level at D/C. Goal to be met by: 08/17/16 Progress towards goal: Met Goal #2: Score on LE functional index improved to <20% impairment. Goal to be met by: 08/17/16 Goal #3: Left knee AROM WFL's to perform all ADL's without difficulty. Goal to be met by: 08/17/16 Progress towards goal: Partially Met Goal #4: Pt to amb. community distances w/o assist. device with min. gait deviation. Goal to be met by: 08/17/16 Progress towards goal: Partially Met Plan PLAN OF CARE EXPIRES ON:: 08/17/16 ORDER # VISITS AND/OR THROUGH DATE: 08/17/16 PLAN: Progress Exercises
--- NOTE | 2016-08-08 09:07 | RS.OPPTDN ---
Subjective Date of Note: 08/08/16 Visit #: 15 Date of Evaluation: 07/02/16 Payer Source: Insurance Treatment Diagnosis: Left knee pain, left knee stiffness, s/p left TKA. Current Subjective/complaints:: No c/o. Pain Assessment - Pain Description Pain Location: left knee, C/c swelling today Pain Description: Tightness Pain Description: soreness Current Pain Intensity: 0 Interventions - Exercise/Activities/Manual Therapy Exercises/Activities: 45 mins. total,(10 on bike) for warm-up.then 3/15 reps on leg press @ 105,120, and 135 #, 1 set of 15 @ 150 #3/20 standing alternating hip flexion,hip extension ,hip abd/adduction with 5#. Total minutes of Exercise: 45 Manual Therapy: NA HOME EXERCISE PROGRAM: Patient is performing TKR HEP currently at home. - Charges Total Direct Minutes: 35 Total Treatment Time: 45 Procedures billed for this date of service:: ex 2 Assessment: Patient continues to have increased quad,hamstring,and hip flexor strength.He rgait is steadier,reports she feels steadier on surfaces outside of the home,such as parking lot,etc.He knee ROM is functional for ADL's.She reports fatigue with hip abduction today ,but no exercises cause knee pain. Patient Education: Home Exercise Program, Home Safety, Education of Plan of Care Patient demonstrates compliance with HEP?: Yes Short Term Goals Goal #1: Left knee AROM 0 to 115 degrees. Goal to be met by: 07/17/16 (120) Progress towards Goal:: Met Goal #2: Left quad strength 4+/5 Goal to be met by: 07/17/16 Progress towards Goal:: Met Goal #3: Left knee pain at rest 0/10. 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 Goal to be met by: 08/17/16 Progress towards goal: Met Goal #2: Score on LE functional index improved to <20% impairment. Goal to be met by: 08/17/16 Goal #3: Left knee AROM WFL's to perform all ADL's without difficulty. Goal to be met by: 08/17/16 Progress towards goal: Partially Met Goal #4: Pt to amb. community distances w/o assist. device with min. gait deviation. Goal to be met by: 08/17/16 Progress towards goal: Partially Met Plan PLAN OF CARE EXPIRES ON:: 08/17/16 ORDER # VISITS AND/OR THROUGH DATE: 08/17/16 PLAN: Continue Plan of Care
== END ==
PROVIDERS: ATTEND Orthopaedic Surgery
DX: Z47.1 Aftercare following joint replacement surgery (principal)

== ENCOUNTER 2016-08-15 08:15 | Outpatient (RCR) ==
--- NOTE | 2016-08-11 09:37 | RS.OPPTDN ---
Subjective Date of Note: 08/11/16 Visit #: 16 Date of Evaluation: 07/02/16 Payer Source: Insurance Treatment Diagnosis: Left knee pain, left knee stiffness, s/p left TKA. Current Subjective/complaints:: Patient says she has not had pain for 3 weeks and no pain meds have been taken. She states she has felt popping that occurs while flexing the R hip and knee. Replies this is uncomfortable. Pain Assessment - Pain Description Pain Location: left knee, C/c swelling today Pain Description: soreness Current Pain Intensity: 0 Interventions - Exercise/Activities/Manual Therapy Exercises/Activities: 38 mins. total,(10 on bike) for warm-up.then 3/15 reps on leg press @ 105,120, and 135 #, 1 set of 15 @ 150#,. 5# cuff for 3/20 standing alternating hip flexion ( reduced to 2 sets of 10),hip extension ,hip abd/ adduction at the rail. Manual Therapy: NA HOME EXERCISE PROGRAM: Patient is performing TKR HEP currently at home. - Charges Total Direct Minutes: 38 Total Treatment Time: 38 Procedures billed for this date of service:: ex3 Assessment: Patient began to have repetitive popping to the R knee during standing hip flexion at the rail. We did decrease reps and omitted one set as a result. All other therex alycia well. R foot and ankle presents with mild swelling. Patient Education: Education of diagnosis, Body/Joint mechanics, Home Exercise Program, Home Safety, Activity Modification, Education of Plan of Care Patient demonstrates compliance with HEP?: Yes Short Term Goals Goal #1: Left knee AROM 0 to 115 degrees. Goal to be met by: 07/17/16 (120) Progress towards Goal:: Met Goal #2: Left quad strength 4+/5 Goal to be met by: 07/17/16 Progress towards Goal:: Met Goal #3: Left knee pain at rest 0/10. Goal to be met by: 07/17/16 Progress towards Goal:: Met Snf Goals Goal #1: Pt knows HEP and to continue ex's to maintain functional level at D/C. Goal to be met by: 08/17/16 Progress towards goal: Met Goal #2: Score on LE functional index improved to <20% impairment. Goal to be met by: 07/09/17 Goal #3: Left knee AROM WFL's to perform all ADL's without difficulty. Goal to be met by: 08/17/16 Progress towards goal: Partially Met Goal #4: Pt to amb. community distances w/o assist. device with min. gait deviation. Goal to be met by: 08/17/16 Progress towards goal: Partially Met Plan PLAN OF CARE EXPIRES ON:: 08/17/16 ORDER # VISITS AND/OR THROUGH DATE: 08/17/16 PLAN: Progress Exercises
--- NOTE | 2016-08-14 11:03 | RS.OPPTDN ---
Subjective Date of Note: 08/14/16 Visit #: 17 Date of Evaluation: 07/02/16 Payer Source: Insurance Treatment Diagnosis: Left knee pain, left knee stiffness, s/p left TKA. Current Subjective/complaints:: Patient says she is doing well with all therex. Says she has been trying to get into her pool for flexibility. Pain Assessment - Pain Description Pain Location: left knee, C/c swelling today Pain Description: soreness Current Pain Intensity: 0 Interventions - Exercise/Activities/Manual Therapy Exercises/Activities: Abbreviated session based on patient's request to leave early for an appt. Began with 10 on bike. 3/15 reps on leg press @ 105,120, and 135 #, 1 set of 15 @ 150#,. 5# cuff for 3/20 standing hip flexion ( reduced to 2 sets of 10),hip extension ,hip abd/adduction at the rail. Total minutes of Exercise: 30 Manual Therapy: NA HOME EXERCISE PROGRAM: Patient is performing TKR HEP currently at home. - Charges Total Direct Minutes: 30 Total Treatment Time: 30 Procedures billed for this date of service:: ex2 Assessment: No pain and good alycia to progressing activity. She will finish final session tomorrow and advance HEP and complete FES. Patient Education: Education of diagnosis, Body/Joint mechanics, Home Exercise Program, Home Safety, Activity Modification, Education of Plan of Care Patient demonstrates compliance with HEP?: Yes Short Term Goals Goal #1: Left knee AROM 0 to 115 degrees. Goal to be met by: 07/17/16 (120) Progress towards Goal:: Met Goal #2: Left quad strength 4+/5 Goal to be met by: 07/17/16 Progress towards Goal:: Met Goal #3: Left knee pain at rest 0/10. Goal to be met by: 07/17/16 Progress towards Goal:: Met Assisted Goals Goal #1: Pt knows HEP and to continue ex's to maintain functional level at D/C. Goal to be met by: 08/17/16 Progress towards goal: Met Goal #2: Score on LE functional index improved to <20% impairment. Goal to be met by: 08/17/16 Goal #3: Left knee AROM WFL's to perform all ADL's without difficulty. Goal to be met by: 08/17/16 Progress towards goal: Partially Met Goal #4: Pt to amb. community distances w/o assist. device with min. gait deviation. Goal to be met by: 08/17/16 Progress towards goal: Partially Met Plan PLAN OF CARE EXPIRES ON:: 08/17/16 ORDER # VISITS AND/OR THROUGH DATE: 08/17/16 PLAN: Plan for Discharge
--- NOTE | 2016-08-15 11:28 | RS.OPPTDC ---
Date of Discharge: 08/15/16 Date of Evaluation: 07/02/16 Number of Visits: 18 Treatment Diagnosis: Left knee pain, left knee stiffness, s/p left TKA. Current Complaints/Gains: Patient pleased with he rprogress,reports fatigue from returning to work yesterday,but better today.She agrees with D/C plan due to good progress. Pain Assessment - Pain Description Pain Location: left knee, C/c swelling today Pain Description: soreness Current Pain Intensity: 0 Functional Outcome Measure LE Functional Scale: 77 - G Codes & Severity Modifier G Codes & Modifier: na Source of G Code score: na Gait - Gait Pattern General Gait Pattern Observation: No Deviations/Normal Interventions - Exercise/Activities/Manual Therapy Exercises/Activities: Abbreviated session based on patient's request to leave early for another MD appt. Began with 10 on bike. 3/15 reps on leg press @ 105 ,120, and 135 #, 1 set of 15 @ 150#,. 5# cuff for 3/20 standing hip flexion alternating bilateral LE's( reduced to 2 sets of 10),hip extension ,ham curls, hip abd/adduction at the rail. Completed LE Functional Scale. Total minutes of Exercise: 33 Manual Therapy: NA HOME EXERCISE PROGRAM: Patient is performing TKR HEP currently at home. - Objective Findings Observations,measurements,etc.: 77/80 or 4% impairment compared to eval of 47/ 80 or 41% impairment - Charges Total Direct Minutes: 33 Total Treatment Time: 33 Procedures billed for this date of service:: ex2 Assessment Assessment: Patient has progressed signficantly with mobility and strength. She is compliant with HEP and admits no pain. Patient Education: Education of diagnosis, Body/Joint mechanics, Home Exercise Program, Home Safety, Activity Modification, Education of Plan of Care Rehab Potential: Good Short Term Goals Goal #1: Left knee AROM 0 to 115 degrees. Goal to be met by: 07/17/16 (120) Progress towards Goal:: Met Goal #2: Left quad strength 4+/5 Goal to be met by: 07/17/16 Progress towards Goal:: Met Goal #3: Left knee pain at rest 0/10. Goal to be met by: 07/17/16 Progress towards Goal:: Met Senior Living Goals Goal #1: Pt knows HEP and to continue ex's to maintain functional level at D/C. Goal to be met by: 08/17/16 Progress towards goal: Met Goal #2: Score on LE functional index improved to <20% impairment. Goal to be met by: 08/17/16 Progress towards goal: Met Comments: 4% impairment Goal #3: Left knee AROM WFL's to perform all ADL's without difficulty. Goal to be met by: 08/17/16 Progress towards goal: Met Goal #4: Pt to amb. community distances w/o assist. device with min. gait deviation. Goal to be met by: 08/17/16 Progress towards goal: Met Plan Reason for Discharge:: All Goals Met
== END 2016-09-08 ==
PROVIDERS: ATTEND Orthopaedic Surgery
DX: Z47.1 Aftercare following joint replacement surgery (principal); Z96.652 Presence of left artificial knee joint

== ENCOUNTER 2016-09-02 10:18 | Outpatient (CLI) ==
[2016-09-02 11:10] LABS: CALCIUM 9.5 mg/dL (8.2-10.2)
== END 2016-09-02 10:19 | disposition home or self-care (01) ==
LOC: LAB 10:18
PROVIDERS: ATTEND Nurse Practitioner Family
DX: Z13.820 Encounter for screening for osteoporosis (principal)
CPT/HCPCS: 36415; 82306; 82310

== ENCOUNTER 2016-11-21 08:57 | Outpatient (CLI) | END 2016-11-21 08:58 | disposition home or self-care (01) | LOC: RAD 08:57 | PROVIDERS: ATTEND Obstetrics & Gynecology | DX: Z12.31 Encounter for screening mammogram for malignant neoplasm of breast (principal) | CPT/HCPCS: 77067 ==

== ENCOUNTER 2017-03-19 15:06 | Outpatient (CLI) ==
--- NOTE | 2017-03-19 15:40 | DI ---
Exam: Three x-rays of the right foot. Comparison: 04/16/2015. Reason for exam: Right foot pain. FINDINGS: No acute fracture or malalignment. There is moderate degenerative disease seen in the mid foot and phalanges. Enthesiophyte formation is seen in the calcaneus. The cortices appear intact. Impression: No obvious fracture or dislocation is seen in the right foot with moderate degenerative disease.
== END 2017-03-19 15:07 | disposition home or self-care (01) ==
LOC: RAD 15:06
PROVIDERS: ATTEND Family Medicine
DX: M79.671 Pain in right foot (principal)

== ENCOUNTER 2017-12-02 15:30 | Outpatient (CLI) ==
--- NOTE | 2017-12-04 08:48 | MAMMO ---
EXAM: Bilateral digital screening mammogram (2-D and 3-D) History: Screening Comparison: Bilateral mammogram 11/21/2016 Findings: MLO and CC views of bilateral breasts demonstrate scattered fibroglandular breast parenchy ma. CAD was viewed by the radiologist. Tomosynthesis was performed. There are no dominant masses, no suspicious microcalcifications and no architectural distortions. Impression: Stable negative mammogram. Recommend followup routine screening mammography in 1 year. BIRADS 1
== END 2017-12-02 15:31 | disposition home or self-care (01) ==
LOC: RAD 15:30
PROVIDERS: ATTEND Obstetrics & Gynecology
DX: Z12.31 Encounter for screening mammogram for malignant neoplasm of breast (principal)
CPT/HCPCS: 77067